=== PATIENT | female | born 1990 | race Caucasian/White ===

== ENCOUNTER 2016-11-13 19:53 | Emergency (ER) | payer MEDICAID ==
[2016-11-13 20:01] VITALS: RESP 18; TEMP 97.7
--- NOTE | 2016-11-13 20:13 | EDPHY ---
H & P Stated Complaint: right sided abd and flank pain Time Seen by Provider: 11/13/16 20:13 - Personal History LMP (Females 10-55): 8-14 Days Ago Current Tetanus/Diphtheria Vaccine: Yes Current Tetanus Diphtheria and Acellular Pertussis (TDAP): Yes Tetanus Vaccine Date: 2014 - Medical/Surgical History Hx Asthma: Yes Hx Chronic Respiratory Disease: No Hx Diabetes: No Hx Cardiac Disease: No Hx Renal Disease: No Hx Cirrhosis: No Hx Alcoholism: No Hx HIV/AIDS: No Hx Splenectomy or Spleen Trauma: No Other PMH: apendectomy 2011 - Social History Smoking Status: Heavy smoker Constitutional: Initial Vital Signs Temperature (C) 36.5 C 11/13/16 19:58 Heart Rate 102 H 11/13/16 19:58 Respiratory Rate 18 11/13/16 19:58 Blood Pressure 114/68 11/13/16 19:58 O2 Sat (%) 98 11/13/16 19:58 O2 Delivery Mode Room Air Allergies/Adverse Reactions: metoclopramide HCl [From Reglan] Allergy (Verified 11/13/16 20:01) Home Medications: Medication Instructions Recorded Albuterol Sulfate [PROVENTIL HFA] 6.7 gm IH Q4-6PRN PRN #1 hfa.aer.ad 01/11/16 Guaifenesin/Codeine Phosphate 10 ml PO HS PRN #100 ml 01/11/16 [Guaifenesin-Codeine Liquid] Medical Decision Making ED Course/Re-evaluation: CHIEF COMPLAINT: Right pelvic pain. HISTORY OF PRESENT ILLNESS: The patient is a 25-year-old female who presents with right pelvic pain. Initially the pain was lower but migrated slightly laterally. The pain is worsened with any movement. She admits nausea and bloating. She also describes having multiple near-syncopal episodes last week. No vomiting, fever, or diarrhea. She reports this feels different from REVIEW OF SYSTEMS: A 10 point review of systems was performed and is negative with the exception of the elements mentioned in the history of present illness. PHYSICAL EXAM: HR, BP, O2 Sat, RR. Temp noted General Appearance: Alert, well hydrated, appropriate, and non-toxic appearing. Head: Atraumatic without scalp tenderness or obvious injury Eyes: Pupils equal, round, reactive to light and accommodation, EOMI, no trauma , no injection. Ears: Clear bilaterally, no perforation, normal landmarks Nose: Atraumatic, no rhinorrhea, clear. Throat: There is no erythema or exudates, no lesions, normal tonsils, mucus membranes moist. Neck: Supple, 2+ carotid upstroke, nontender, no lymphadenopathy. Respiratory: No retractions, no distress, no wheezes, and no accessory muscle use. Lungs are clear to auscultation bilaterally. Cardiovascular: Regular rate and rhythm, no murmurs, rubs, or gallops. Bilateral carotid, radial, dorsalis pedis, and posterior tibial pulses intact. Good capillary refill all extremities. Gastrointestinal: Abdomen is soft, nontender, non-distended, no masses, no rebound, no guarding, no peritoneal signs. No McBurney's point tenderness. Musculoskeletal: Normal active ROM of all extremities, atraumatic. Neurological: Alert, appropriate, and interactive. The patient has normal DTRs and non-focal cranial nerves, motor, sensory, and cerebellar exam. Skin: No rashes, good turgor, no nodules on palpation. Past medical history:Denies. Past surgical history: Appendectomy. Family history:N/A. Social history:Smoker. DIAGNOSTICS/PROCEDURES/CRITICAL CARE TIME: Study: Ultrasound of the: ovaries. Indication: Pain. Results: Normal. The study was read by the radiologist, Dr. Sandoval. I viewed the images myself on the PACS system. DIFFERENTIAL DIAGNOSIS: The differential diagnosis for the patient's abdominal pain included but was not limited to ovarian cyst, pelvic inflammatory disease, ovarian torsion, urinary tract infection, ectopic , and cholecystitis. MEDICAL DECISION MAKIN-year-old female presents with lower right pelvic pain. This pain appears to have been initially migratory. It is worsened with movement. On exam she is not tender at [place]. An IV was established and labs ordered. Ultrasound of ovaries ordered. 2113: Urinalysis negative. Patient is not . Ultrasound reported to me negative by Dr. Sandoval. She will be discharged with pain medications. I have instructed her to follow up with WATER SYSTEMS ENGINEER. She is comfortable with this plan. - Data Points Laboratory Results: 11/13/16 20:40 Urine Color PALE YELLOW Urine Appearance CLEAR Urine pH 6.0 (5.0-7.5) Ur Specific [place] 1.004 (1.002-1.030) Urine Protein NEGATIVE (NEGATIVE) Urine Ketones NEGATIVE (NEGATIVE) Urine Blood 1+ H (NEGATIVE) Urine Nitrate NEGATIVE (NEGATIVE) Urine Bilirubin NEGATIVE (NEGATIVE) Urine Urobilinogen NEGATIVE EU EU (0.2-1.0) Ur Leukocyte Esterase NEGATIVE (NEGATIVE) Urine RBC 3-5 /hpf H /hpf (0-3) Urine WBC 1-3 /hpf /hpf (0-3) Ur Epithelial Cells TRACE /lpf /lpf (NONE-1+) Ur Culture Indicated? NOT INDICATED (NI) Urine Glucose NEGATIVE (NEGATIVE) Departure - Departure Disposition: Home, Routine, Self-Care Clinical Impression: Pelvic pain Condition: Good Instructions: Pelvic Pain in Women (ED) Additional Instructions: Follow up with your WATER SYSTEMS ENGINEER this week if pain persists. If you need an WATER SYSTEMS ENGINEER you have been given the telephone number of the on-call provider. Return for any serious worsening of condition. Referrals: Karolina Brown MD [Primary Care Provider] - As per Instructions Vanessa Engel MD [Medical Doctor] - As per Instructions Report Scribed for: Ash Santiago Report Scribed by: Remington Goldberg Date of Report: 11/13/16 Time of Report: 20:15
[2016-11-13] MEDS ORDERED: NS 1,000 ML IV ONE (20:17)
[2016-11-13] MEDS ORDERED: HYDROmorphONE/DILAUDID 1 MG/ML SYR IVP ONE (20:19)
[2016-11-13 21:02] LABS: COLOR PALE YELLOW; LEUKOCYTE ESTERASE,URINE NEGATIVE (NEGATIVE); NITRITE,URINE NEGATIVE (NEGATIVE)
[2016-11-13 21:43] VITALS: BP 128/77; PULSE 80; O2SAT 96
[2016-11-13] MEDS: HYDROCOD/APAP 5/325 PREPACK#6 BTL TAKEHOME ONE ×2 (21:49→21:50)
== END 2016-11-13 21:43 | disposition home or self-care (01) ==
DX: R10.2 Pelvic and perineal pain (principal); J45.909 Unspecified asthma, uncomplicated; F17.200 Nicotine dependence, unspecified, uncomplicated

== ENCOUNTER → 2016-12-15 | Outpatient (CLI) | payer MEDICAID | LOC: FIMAGING 16:17 | PROVIDERS: ATTEND Nurse Practitioner Family | DX: R05 Cough (principal); J98.4 Other disorders of lung ==

== ENCOUNTER 2016-12-17 06:40 | Emergency (ER) | payer MEDICAID ==
--- NOTE | 2016-12-17 07:00 | EDPHY ---
H & P Stated Complaint: cough since 11/27 worst this week Time Seen by Provider: 12/17/16 06:59 - Personal History LMP (Females 10-55): 15-21 Days Ago Current Tetanus/Diphtheria Vaccine: Yes Current Tetanus Diphtheria and Acellular Pertussis (TDAP): Yes Tetanus Vaccine Date: 2014 - Medical/Surgical History Hx Asthma: Yes Hx Chronic Respiratory Disease: No Hx Diabetes: No Hx Cardiac Disease: No Hx Renal Disease: No Hx Cirrhosis: No Hx Alcoholism: No Hx HIV/AIDS: No Hx Splenectomy or Spleen Trauma: No Other PMH: appendectomy 2011 - Social History Smoking Status: Heavy smoker Constitutional: Initial Vital Signs Temperature (C) 37.1 C 12/17/16 06:43 Heart Rate 91 12/17/16 06:43 Respiratory Rate 16 12/17/16 06:43 Blood Pressure 113/58 L 12/17/16 06:43 O2 Sat (%) 99 12/17/16 06:43 O2 Delivery Mode Room Air Allergies/Adverse Reactions: metoclopramide HCl [From Reglan] Allergy (Verified 12/17/16 06:45) prednisone Allergy (Verified 12/17/16 06:46) Home Medications: Medication Instructions Recorded Albuterol Sulfate [PROVENTIL HFA] 6.7 gm IH Q4-6PRN PRN #1 hfa.aer.ad 01/11/16 Albuterol [Proventil Inhaler] 1 - 2 puffs IH Q4 #1 mdi 12/17/16 Fluticasone Hfa 110 Mcg [Flovent 1 puffs IH BID #1 mdi 12/17/16 110 MCG Hfa MDI (*)] HYDROcodone/HOMATROPINE HYCODA 1 tsp PO Q4-6PRN PRN #120 ml 12/17/16 [Hycodan Syrup (RX)] Zyrtec 12/17/16 Medical Decision Making ED Course/Re-evaluation: CHIEF COMPLAINT: Persistent cough HISTORY OF PRESENT ILLNESS: The patient is a 26 y/o female, with a history of asthma, arriving with her friend complaining of a progressive cough for the last 3 weeks. She has been struggling with persistent asthma exacerbations since living in an apartment with black mold for over 6 months; she has since moved out, but then developed a cough. Her cough is sometimes dry and sometimes productive with clear mucus. She was evaluated by her PCP at [facility] last week and had a chest x-ray. The x-ray was negative for pneumonia and the patient was started on azithromycin. She is also using her albuterol and Flovent inhalers without improvement. She has been unable to sleep. REVIEW OF SYSTEMS: A 10 point review of systems was performed and is negative with the exception of the elements mentioned in the history of present illness. PHYSICAL EXAM: HR, BP, O2 Sat, RR. Temp noted General Appearance: Alert, well hydrated, appropriate, and non-toxic appearing. Head: Atraumatic without scalp tenderness or obvious injury Eyes: Pupils equal, round, reactive to light and accommodation, EOMI, no trauma , no injection. Ears: Clear bilaterally, no perforation, normal landmarks Nose: Atraumatic, no rhinorrhea, clear. Throat: There is no erythema or exudates, no lesions, normal tonsils, mucus membranes moist. Neck: Supple, nontender, no lymphadenopathy. Respiratory: No retractions, no distress, no wheezes, and no accessory muscle use. Coarse rhonchi through all lorenzo without focal decrease. Cardiovascular: Regular rate and rhythm, no murmurs, rubs, or gallops. Good capillary refill all extremities. Gastrointestinal: Abdomen is soft, nontender, non-distended, no masses, no rebound, no guarding, no peritoneal signs. Musculoskeletal: Normal active ROM of all extremities, atraumatic. Neurological: Alert, appropriate, and interactive. Neuro exam non-focal. Skin: No rashes, good turgor, no nodules on palpation. Past medical history: Asthma Past surgical history: Appendectomy Family history: noncontributory Social history: Friend at bedside. Heavy smoker. Prior medical records reviewed including ED visit 11/13/16 for abdominal pain and chest x-ray from 12/15/16. DIFFERENTIAL DIAGNOSIS: The differential diagnosis for the patient's cough included but was not limited to bronchitis, asthma exacerbation, pneumonia, viral syndrome, and sepsis. MEDICAL DECISION MAKING: This is a 26 y/o female with a history of smoking and asthma who presents with a 3-week history of slightly productive cough. Her symptoms have not improved after 2 days of azithromycin and use of her inhalers. She also notes she is out of her inhaler prescriptions. Her chest x-ray 2 days ago did not show an infiltrate. She has coarse rhonchi throughout all lorenzo without focal decrease. She is afebrile without respiratory distress. Her presentation is consistent with bronchitis and I think she is on appropriate antibiotic treatment. We will administer a duo neb here and send patient home with scripts for Hycodan syrup and new inhaler scripts. She declines steroid treatment due to previous "manic" reaction to prednisone. Return precautions given. She is comfortable with this plan. - Data Points Medications Given: Discontinued Medications Albuterol/Ipratropium (Duoneb) 3 ml IH EDNOW ONE Stop: 12/17/16 07:19 Last Admin: 12/17/16 07:19 Dose: 3 ml Departure - Departure Disposition: Home, Routine, Self-Care Clinical Impression: Acute bronchitis Qualifiers: Bronchitis organism: other organism Qualified Code(s): J20.8 - Acute bronchitis due to other specified organisms Condition: Good Instructions: Acute Bronchitis (ED) Additional Instructions: 1. Continue your azithromycin. Complete the entire course even if you feel better. 2. Use your inhalers prophylactically as prescribed. 3. Use Hycodan for cough suppression as prescribed. This medication will make you drowsy. 4. Follow up with your primary care provider for symptoms not improved over the next week. Referrals: Karolina Brown MD [Primary Care Provider] - As per Instructions Prescriptions: Albuterol [Proventil Inhaler] 1 - 2 puffs IH Q4 #1 mdi Fluticasone Hfa 110 Mcg [Flovent 110 MCG Hfa MDI (*)] 1 puffs IH BID #1 mdi HYDROcodone/HOMATROPINE HYCODA [Hycodan Syrup (RX)] 1 tsp PO Q4-6PRN PRN #120 ml PRN Reason: Cough, Moderate Report Scribed for: Ash Santiago Report Scribed by: Lizette Barnes Date of Report: 12/17/16 Time of Report: 07:07
[2016-12-17] MEDS ORDERED: IPRATROPIUM/ALBUTEROL 3 ML DEYVIAL ONE (07:15)
[2016-12-17] MEDS ORDERED: IPRATROPIUM/ALBUTEROL 3 ML DEYVIAL IH ONE (07:18)
[2016-12-17 07:31] VITALS: BP 111/67; PULSE 84; RESP 20; TEMP 98.6; O2SAT 97
== END 2016-12-17 07:36 | disposition home or self-care (01) ==
DX: J20.8 Acute bronchitis due to other specified organisms (principal); J45.909 Unspecified asthma, uncomplicated; F17.200 Nicotine dependence, unspecified, uncomplicated

== ENCOUNTER 2016-12-18 22:31 | Emergency (ER) | payer MEDICAID ==
[2016-12-18 22:39] VITALS: RESP 16
[2016-12-18] MEDS ORDERED: FAMOTIDINE 20 MG/2 ML SDV IVP ONE (22:46)
[2016-12-18] MEDS ORDERED: NS 1,000 ML IV ONE (22:46)
--- NOTE | 2016-12-18 22:50 | EDPHY ---
General - History Smoking Status: Heavy smoker Narrative: CHIEF COMPLAINT: Rash, itching HISTORY OF PRESENT ILLNESS: Patient complains of pruritic rash. This started this morning. This is after starting Hycodan cough syrup last night. She has been coughing for week and been on Zithromax for the past 5 days. She was evaluated here discharged home with Hycodan cough syrup. She took a dose last night, this morning, at 7:00 p.m.. She has had significant improvement of her cough, but she noted some itching this morning. It was mild to moderate. It did not worsen until this evening after 7:00 p.m. dose. She then noted some generalized rash on her forehead back. Some very pruritic, raised rash. She has no difficulty swallowing. No shortness of breath. No swelling of the lips or tongue. No chest pain. No worsening of her cough this evening. No other associated complaints or modifying factors. REVIEW OF SYSTEMS: Ten systems reviewed and are negative unless otherwise noted in the HPI PERTINENT MEDICAL HISTORY: Asthma EXAMINATION General Appearance: Alert, no distress Head: normocephalic, atraumatic Eyes: Pupils equal and round, no conjunctival pallor or injection ENT, Mouth: Mucous membranes moist. Uvula midline. No erythema or edema. No swelling of the lips or tongue. Airway is widely patent. Neck: Normal inspection, supple, non-tender Respiratory: Lungs are clear to auscultation. No wheezing, rhonchi or crackles. Cardiovascular: Regular rate and rhythm. No murmur. Back: non-tender, no bony abnormalities Neurological: A&O, nonfocal, normal gait. Strength is symmetric in all limbs. Skin: Warm and dry. Urticarial rash to the forehead and the upper left back. Mild urticaria to the arms. No petechiae or purpura. Extremities: Nontender, no pedal edema Psychiatric: Mood and affect normal DIFFERENTIAL DIAGNOSES: Including but not limited to acute allergic reaction, anaphylaxis, pruritic rash , drug intolerance MDM: 10:47 p.m. Likely allergic reaction. No evidence of anaphylaxis at this point. The medication that was started last night with Hycodan cough syrup. She has the medication has helped significantly with cough, but she has been itching all day. She still took the medication at 7:00 p.m. despite this because of the amount of relief she was getting. She has been on a Zithromax for 5 days now so I suspect this is not the offending agent. I will treat her with IV Benadryl and Pepcid. She has declined steroids because of an intolerance to prednisone in the past. She has no swelling of the lips or tongue. She is in no acute distress. She does not warrant epinephrine at this time. She is resting comfortably in no distress. 11:10 p.m. At this time her itching has nearly resolved. Her rash is improving. She is still coughing, but her apparent allergic reaction is improving. Airway remains patent. She still has no swelling of the lips or tongue. Recommend observation for the next hour and then discharged home. She is to follow up with primary care physician. I also recommended that she try dextromethorphan as she has not tried this. SUPERVISION: This patient was independently evaluated without direct examination by the attending physician. Case was discussed with attending physician. (Cesar Burns) Medical Decision Making: PHYSICIAN DOCUMENTATION: The patient was evaluated and managed by the Physician Line Staker. My co- signature indicates that I have reviewed this chart and I agree with the findings and plan of care as documented. I am the secondary supervising physician. (Laura Bae) - Objective Vital Signs: Initial Vital Signs Temperature (C) 36.8 C 12/18/16 22:37 Heart Rate 79 12/18/16 22:37 Respiratory Rate 16 12/18/16 22:37 Blood Pressure 102/54 L 12/18/16 22:37 O2 Sat (%) 99 12/18/16 22:37 O2 Delivery Mode Room Air Allergies/Adverse Reactions: hydrocodone Allergy (Verified 12/18/16 22:36) metoclopramide HCl [From Reglan] Allergy (Verified 12/18/16 22:35) prednisone Allergy (Verified 12/18/16 22:35) Home Medications: Medication Instructions Recorded Albuterol Sulfate [PROVENTIL HFA] 6.7 gm IH Q4-6PRN PRN #1 hfa.aer.ad 01/11/16 Albuterol [Proventil Inhaler] 1 - 2 puffs IH Q4 #1 mdi 12/17/16 Fluticasone Hfa 110 Mcg [Flovent 1 puffs IH BID #1 mdi 12/17/16 110 MCG Hfa MDI (*)] HYDROcodone/HOMATROPINE HYCODA 1 tsp PO Q4-6PRN PRN #120 ml 12/17/16 [Hycodan Syrup (RX)] Zyrtec 12/17/16 Medications Given: Discontinued Medications Diphenhydramine HCl (Benadryl Injection) 50 mg IVP EDNOW ONE Stop: 12/18/16 22:47 Last Admin: 12/18/16 22:57 Dose: 50 mg Famotidine (Pepcid) 20 mg IVP EDNOW ONE Stop: 12/18/16 22:47 Last Admin: 12/18/16 22:58 Dose: 20 mg Sodium Chloride (Ns) 1,000 mls @ 0 mls/hr IV ONCE ONE PRN Reason: Wide Open Stop: 12/18/16 22:47 Last Admin: 12/18/16 22:58 Dose: 1,000 mls Departure - Departure Disposition: Home, Routine, Self-Care Clinical Impression: Allergic reaction to drug Condition: Good Instructions: Urticaria (ED), Anaphylaxis (ED) Additional Instructions: Discard remaining Hycodan cough syrup your local pharmacy. Continue Benadryl 25 -50 mg every 6 hours for the next 3-5 days. Continue Pepcid 20 mg twice daily for the next 3-5 days. Call 911 or return to ER for any difficulty breathing, swelling of the lips or tongue. Follow up with primary care physician Referrals: Karolina Brown MD [Primary Care Provider] - As per Instructions
[2016-12-18 23:33] VITALS: BP 89/74; PULSE 90; TEMP 97.9; O2SAT 100
== END 2016-12-18 23:33 | disposition home or self-care (01) ==
DX: R21 Rash and other nonspecific skin eruption (principal); T40.2X5A Adverse effect of other opioids, initial encounter; J45.909 Unspecified asthma, uncomplicated; F17.200 Nicotine dependence, unspecified, uncomplicated
CPT/HCPCS: 96374; J1200